=== PATIENT | female | born 1945 | race Caucasian/White ===

== ENCOUNTER → 2016-08-10 | Outpatient (CLI) | payer OTHER ==
[~2016-08-10] MED LIST: AMB10 PO; AMOX500T PO; CALC500C70 PO; CHOL1CAP57 PO; CIME-56 PO; CYAN10005 PO; CYM60 PO; LISI-461 PO; MELO15TA10 PO; MISC1CAP PO; MULT-506 PO; OXYC-609 PO; OXYC7.5T78 PO; RELORA PO; TRAM-10 PO; [UNRECOGNIZED DRUG - CODE] PO
== END | disposition home or self-care (01) ==
LOC: C.PAPS 14:31
PROVIDERS: ATTEND Obstetrics & Gynecology
DX: C54.1 Malignant neoplasm of endometrium (principal)